=== PATIENT | female | born 1965 | race Caucasian/White ===

== ENCOUNTER → 2020-08-19 | Outpatient (CLI) | payer BC, OTHER | LOC: EXRD 08-05 08:30 | DX: R10.11 Right upper quadrant pain (principal); Z85.42 Personal history of malignant neoplasm of other parts of uterus | CPT/HCPCS: 76705 ==

== ENCOUNTER → 2020-09-10 | Outpatient (CLI) | payer BC, OTHER | LOC: CT 09:14 | DX: R10.11 Right upper quadrant pain (principal); K63.9 Disease of intestine, unspecified | CPT/HCPCS: Q9967 ==

== ENCOUNTER → 2020-09-15 | Outpatient (CLI) | payer BC, OTHER | LOC: KOH-I 14:24 | DX: S46.092D Other injury of muscle(s) and tendon(s) of the rotator cuff of left shoulder, subsequent encounter (principal); M75.102 Unspecified rotator cuff tear or rupture of left shoulder, not specified as traumatic; M19.012 Primary osteoarthritis, left shoulder; X58.XXXD Exposure to other specified factors, subsequent encounter | CPT/HCPCS: 73221 ==